=== PATIENT | male | born 1985 | race Hispanic/Latino ===

== ENCOUNTER 2019-03-12 20:48 | Emergency (ER) | payer OTHER ==
[~2019-03-12] VITALS: Ht 170.2 cm; Wt 74.8 kg
--- OUTSIDE RECORDS SUMMARY | 2019-03-12 20:51 | XMS REPORT ---
Author Author [facility] Address Unknown Phone Unavailable Care Team Providers Care Director Of Agronomy Name Role Phone OPAL PATRICK Unavailable Unavailable Problems This patient has no known problems. Allergies, Adverse Reactions, Alerts This patient has no known allergies or adverse reactions. Medications This patient has no known medications. Encounters Start Date/Time End Date/Time Encounter Type Admission Type Attending Clinicians Care Facility Care Department Encounter ID 2016-08-02 11:13:00 2016-09-04 23:59:00 Outpatient OPAL RO[facility] [place] [facility] PT [place] [id number]
--- OUTSIDE RECORDS SUMMARY | 2019-03-12 20:51 | XMS REPORT | Clinical Summary ---
Author Author [facility] Address Unknown Phone Unavailable Care Team Providers Care Professor Of Apologetics Name Role Phone Annette Cosby PCP Unavailable Allergies No Known Allergies Medications End Date Status Medication Sig Dispensed Refills Start Date Active acetaminophen (TYLENOL) Take 650 mg 0 325 MG tablet by mouth. Active clonazePAM (KLONOPIN) 0.5 Take 0.5 mg 0 MG tablet by mouth. 6 Active FLUoxetine (PROZAC) 40 MG Take 40 mg by 0 capsule mouth. 6 Active meloxicam (MOBIC) 15 MG Take 15 mg by 0 tablet mouth. 6 Active methocarbamol (ROBAXIN) Take 500 mg 0 500 MG tablet by mouth. 6 Active cyclobenzaprine 0 (FLEXERIL) 10 MG tablet 6 Active Problems Not on file Social History Date Tobacco Use Types Packs/Day Years Used Never Smoker Alcohol Use Drinks/Week oz/Week Comments No Sex Assigned at Date Recorded Not on file Industry Job Start Date Occupation Not on file Not on file Not on file Travel End Travel History Travel Start No recent travel history available. Last Filed Vital Signs Not on file Plan of Treatment Not on file Results Not on fileafter 03/11/2018 Insurance Payer Benefit Subscriber ID Type Phone Address Plan / Group AETNA - MGD CARE AETNA HMO xxxxxxxxxx HMO/POS POS QPOS
--- OUTSIDE RECORDS SUMMARY | 2019-03-12 20:51 | XMS REPORT | Continuity of Care Document ---
Author Author [facility] Interface Address Unknown Phone Unavailable Problems Problem Status Onset Date Classification Date Reported Comments Source Body mass index 25-29 - overweight 01/18/2018 Diagnosis 01/18/2018 [facility] Body Mass Index 25-29 - Overweight 01/18/2018 Problem 01/18/2018 [facility] Backache 01/18/2018 Problem 01/18/2018 [facility] Headache 01/18/2018 Problem 01/18/2018 [facility] Medications Medication Details Route Status Patient Instructions Ordering Provider Order Date Source Cyclobenzaprine hydrochloride 10 MG Oral Tablet cyclobenzaprine 10 mg tablet Take 1 tablet 3 times a day by oral route as needed for 7 days. Active [facility] Allergies, Adverse Reactions, Alerts Substance Category Reaction Severity Reaction type Status Date Reported Comments Source Immunizations Immunization Date Given Site Status Last Updated Comments Source influenza, unspecified formulation 08/05/2017 completed [facility] Tdap 10/05/2015 completed [facility] Results Order Name Results Value Reference Range Date Interpretation Comments Source Vital Signs Vital Sign Value Date Comments Source Diastolic (mm Hg) 75 01/18/2018 [facility] Height 68 01/18/2018 [facility] Systolic (mm Hg) 118 01/18/2018 [facility] Weight 180 01/18/2018 [facility] Encounters Location Location Details Encounter Type Encounter Number Reason For Visit Attending Provider ADM Date DC Date Status Source [place] - [facility] - [id number]_HeflyxdrLindsey Hughes, HEALTH COMMUNICATIONS SPECIALIST-C: [address] [place] [address], Ph. [id number] Elizabeth Hughes 01/18/2018 [facility] Procedures Procedure Code Date Perfomer Comments Source
--- OUTSIDE RECORDS SUMMARY | 2019-03-12 20:51 | XMS REPORT | Encounter Summary ---
Author Organization Unknown Address [address] [place] [address] Phone [phone] Care Team Providers Care Braider Operator Name Role Phone Annette Cosby 3 [phone] Reason for Visit Medical Complaint Instructions 1. Headache headache: care instructions 2. Backache back pain: care instructions cyclobenzaprine 10 mg tablet 3. Body mass index 25-29 - overweight Discussion Note Pt is in NAD; Verbalizes understanding of all instructions with no questions at this time. Plan of Care Patient Instructions Rest and alternate with ice and heat,Recommend take naprosyn and cyclobenzaprine as directed. Do no operate any machinery or drive while taking these medications. Recommend avoid extreneous exercise, avoid heavy lifting. Activity as tolerated. If worsening of symptoms follow up with PCP or back specialist. In case of emergency call 911 or go to nearest ER. Recommend follow a low sodium/fat/carb diet and exercise 30-45 mins/d 3-4 days a week once symptoms resolve. Reminders Provider Appointments None recorded. Lab None recorded. Referral None recorded. Procedures None recorded. Surgeries None recorded. Imaging None recorded. Medications Name Start Date cyclobenzaprine 10 mg tablet Take 1 tablet 3 times a day by oral route as needed for 7 days. Medications Administered None recorded. Vitals Height Weight BMI Blood Pressure 5 ft 8 in 180 lbs 27.4 kg/m2 118/75 mm[Hg] Lab Results None recorded. Allergies Code Code System Name Reaction Severity Status Onset NKDA Problems Name Status Onset Date Source Body Mass Index 25-29 - Overweight Active 01/18/2018 Backache Active 01/18/2018 Headache Active 01/18/2018 Procedures None recorded. Vaccine List Vaccine Type influenza, unspecified formulation 08/05/2017 Tdap 10/05/2015 Social History Smoking Status Never Smoker Past Encounters 01/18/2018 Headache; Backache; Body Mass Index 25-29 - Overweight MICHELLE Ag-C: [address] [place] [address], Ph. History of Present Illness Headache Reported By: Patient HPI: Location: temporal. Quality: not the worst headache ever, similar to previous headaches. Severity: pain level 3/10. Duration: intermittent. Onset/Timing: better, gradual. Context: not related to trauma, stress at work. Modifying factors: OTC medication, sleep, rest. Associated Symptoms: no fever/chills, no muscle aches, no vomiting, no sensitivity to light, tearing/watery eyes, no confusion, no slurred speech, no preceeding aura, no double vision, normal feeling/sensation, no motor paralysis, no dizziness, no sleep disturbances, no nosebleeds, no hoarseness, no sore throat, no hearing loss, headache; upper back pain Musculoskeletal Complaint Reported By: Patient HPI: Location: Location:. Quality: sharp, deep, intermittent. Severity: moderate (5-7), same, pain level 6-7/10. Duration: intermittent. Onset/Timing: acute, gradual. Context: atraumatic, prior back problems; Pt reports being under a lot of stress lately. Alleviating factors: NSAIDS. Aggravating factors: twisting, movement/positioning, bending over. Associated Symptoms: no fever/chills, no warmth, no redness, no swelling, no drainage, no ecchymosis, no weakness, no tingling, no numbness, no radiation, no catching/locking, no popping/clicking, no buckling, no grinding, no instability, no weight loss, no change in bowel/bladder habits, no muscle aches, headache; upper back pain Review of Systems Basic Reported By: Patient Constitutional: Constitutional: no fever Eyes: Eyes: no eye complaints Obph-Hfte-Oteeb-Throat: Ears: no ear complaints. Nose: no nose/sinus problems. Mouth/Throat: no sore throat, no bleeding gums, no mouth complaints, no teeth problems Cardiovascular: Cardiovascular: no chest pain, no shortness of breath, no known heart murmur Respiratory: Respiratory: no cough, no wheezing, no shortness of breath Gastrointestinal: Gastrointestinal: no abdominal pain, no vomiting / diarrhea Genitourinary: Genitourinary: no urinary complaints, no discharge Musculoskeletal: Musculoskeletal: no muscle aches, no muscle weakness, no arthralgias/joint pain, back pain Skin: Skin: no abnormal / changing mole, no jaundice, no rashes Neurologic: Neurologic: no loss of consciousness, no weakness, no numbness, no seizures, no dizziness, no headaches, headache Physical Exam Adult Basic, Adult Male Complete, Expanded Musculoskeletal Exam 1 Reported By: Patient Constitutional: General Appearance: healthy-appearing, well-nourished, well-developed, overweight. Level of Distress: NAD. Ambulation: ambulating normally Psychiatric: Mental Status: active and alert. Orientation: to time, to place, to person Eyes: Lids and Conjunctivae: non-injected, no discharge, no pallor. Pupils: PERRLA. Corneas: grossly intact. EOM: EOMI. Lens: clear. Vision: peripheral vision grossly intact Efn-Vbqs-Zkkvz-Throat: Nose: no lesions on external nose, nares patent, no septal deviation, nasal passages clear, no sinus tenderness, no nasal discharge Neck: Neck: supple, FROM. Lymph Nodes: no cervical LAD Lungs: Respiratory effort: no dyspnea, no tachypnea, no use of accessory muscles, no intercostal retractions. Auscultation: breath sounds normal, good air movement Cardiovascular: Heart Auscultation: RRR, no murmurs. Pulses including femoral / pedal: normal throughout Musculoskeletal:: Motor Strength and Tone: normal motor strength, normal tone, normal. Joints, Bones, and Muscles: normal movement of all extremities, no bony abnormalities, no contractures, no malalignment, no tenderness. Extremities: no cyanosis, no edema, no varicosities, no palpable cord. Cervical Spine Motion: normal, flexion normal, extension normal, lateral flexion right normal, lateral flexion left normal, rotation right normal, rotation left normal. Shoulder Motion Right: normal, forward elevation normal, abduction normal, adduction normal, external rotation normal, internal rotation normal. Shoulder Motion Left: normal, forward elevation normal, abduction normal, adduction normal, external rotation normal, internal rotation normal Neurologic: Gait and Station: normal gait, normal station, finger-nose normal, heel-knee normal, romberg's sign absent. Cranial Nerves: grossly intact. Sensation: grossly intact. Reflexes: DTRs 2+ bilaterally throughout Back: Thoracolumbar Appearance: normal curvature
[2019-03-12] MEDS ORDERED: LORAZEPAM INJ 2 MG/ML VIAL IM ONE (21:15)
[2019-03-12] MEDS ORDERED: HYDROCODONE/APAP 5MG-325MG TAB PO ONE (21:15)
--- NOTE | 2019-03-12 21:47 | Diagnostic Imaging Report ---
Lumbar Spine Radiographs: 3 views HISTORY: Pain COMPARISON: None available. DISCUSSION: Some of the osseous structures are partially obscured by stool and bowel gas. There are five non-rib bearing lumbar vertebral bodies. The alignment of the spine is within normal limits. No displaced fracture or compression deformity is identified. Minimal T12 and L1 superior endplate compression deformity of indeterminate age. IMPRESSION: Minimal T12 and L1 vertebral body superior endplate compression deformities of indeterminate age. Otherwise, unremarkable Signed by: Dr. Dylan Blackman MD on 03/12/2019 9:44 PM
[2019-03-12 22:29] VITALS: BP 134/90
== END 2019-03-12 22:33 | disposition home or self-care (01) ==
LOC: ER 20:48
DX: M54.5 Low back pain (principal); S33.5XXA Sprain of ligaments of lumbar spine, initial encounter; V23.4XXA Motorcycle driver injured in collision with car, pick-up truck or van in traffic accident, initial encounter; Y92.488 Other paved roadways as the place of occurrence of the external cause
CPT/HCPCS: 72100; 99283; J2060

== ENCOUNTER 2020-02-20 06:57 | Emergency (ER) | payer OTHER ==
[~2020-02-20] VITALS: Ht 170.2 cm; Wt 74.8 kg
--- OUTSIDE RECORDS SUMMARY | 2020-02-20 07:00 | XMS REPORT | Clinical Summary ---
Author Author [facility] Address Unknown Phone Unavailable Care Team Providers Care Cake Tester Name Role Phone Annette Cosby PCP Unavailable Allergies No Known Allergies Medications End Date Status Medication Sig Dispensed Refills Start Date Active acetaminophen (TYLENOL) Take 650 mg 0 325 MG tablet by mouth. Active clonazePAM (KLONOPIN) 0.5 Take 0.5 mg 0 04/05 MG tablet by mouth. 6 Active FLUoxetine (PROZAC) 40 MG Take 40 mg by 0 04/05 capsule mouth. 6 Active meloxicam (MOBIC) 15 [...] Not on file Results Not on fileafter 02/19/2019 Insurance Payer Benefit Subscriber ID Type Phone Address Plan / Group AETNA - MGD CARE AETNA HMO xxxxxxxxxx HMO/POS POS QPOS
--- OUTSIDE RECORDS SUMMARY | 2020-02-20 07:00 | XMS REPORT ---
Author Author [facility] t Organization [facility] Address [address] [place] [address] Phone Unavailable Care Team Providers Care Aircraft Magneto Mechanic Name Role Phone NONSTAFF PCP Unavailable SAMIA KNIGHT Attphys Unavailable OPAL PATRICK Attphys Unavailable OPAL PATRICK Admphys Unavailable Payers Payer Name Policy Type Policy Number Effective Date Expiration Date Melina Courtney o [id number] 2016 00:00:00 [facility] Problems This patient has no known problems. Allergies, Adverse Reactions, Alerts This patient has no known allergies or adverse reactions. Medications This patient has no known medications. Procedures This patient has no known procedures. Encounters Start Date/Time End Date/Time Encounter Type Admission Type Attendi [facility] Care Department Encounter ID Source 2019-03-12 20:48:00 2019-03-12 20:48:00 Registered Emergency Room 1 SAMIA KNIGHT [facility] [id number] [facility] 2016-08-02 11:13:00 2016-09-04 23:59:00 Outpatient EDIL RO[facility] [place] [id number] [facility] Results Test Description Test Time Test Comments Results Result Comments Source SP LUMBAR AP LATERAL 2-3VWS 2019-03-12 21:41:00 [facility] [address] [place], [place] [address] Patient Name: CORDELL PALUMBO MR #: [id number] : 1985 Age/Sex: 33/M Req #: [id number] Adm Physician: Ordered by: SAMIA KNIGHT DO Report #: [id number] Location: ER Room/Bed: Procedure: [id number] DX/SP LUMBAR AP LATERAL 2-3VWS Exam Date: 03/12/19 Exam Time: 2100 REPORT STATUS: Signed Lumbar Spine Radiographs: 3 views HISTORY: Pain COMPARISON: None available. DISCUSSION: Some of the osseous structures are partially obscured by stool and bowel gas. There are five non-rib bearing lumbar vertebral bodies. The alignment of the spine is within normal limits. No displaced fracture or compression deformity is identified. Minimal T12 and L1 superior endplate compression deformity of indeterminate age. IMPRESSION: Minimal T12 and L1 vertebral body superior endplate compression deformities of indeterminate age. Otherwise, unremarkable Signed by: Dr. Dylan Andrade MD on 03/12/2019 9:44 PM Dictated By: DYLAN ANDRADE MD 43 Transcribed By: WONG on 03/12/192143 COPY TO: SAMIA KNIGHT DO
[2020-02-20] MEDS ORDERED: ONDANSETRON HCL INJ 2MG/ML 2ML 2 MG/ML VIAL IV STA (07:01)
[2020-02-20] MEDS ORDERED: SODIUM CHLORIDE 0.9% 1000ML 1,000 ML IV STA ×2 (07:01→07:05)
[2020-02-20] MEDS ORDERED: KETOROLAC TROMETHAMINE 30 MG/ML VIAL IV STA ×2 (07:01→09:43)
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
[2020-02-20] MEDS ORDERED: SODIUM CHLORIDE 0.9% 1000ML 1,000 ML ONE (07:16)
[2020-02-20 07:41] LABS: BASOPHILS % 0.5 % (0.0-1.0); EOSINOPHILS # (AUTO) 0.3 (0.0-0.4); EOSINOPHILS % 3.2 % (0.0-6.0); HEMATOCRIT 44.2 % (38.2-49.6); HEMOGLOBIN 14.3 g/dL (14.0-18.0); LYMPHOCYTES % 47.7 % (18.0-39.1); MEAN CORPUSCULAR HEMOGLOBIN 28.9 pg (28-32); MEAN CORPUSCULAR HGB CONC 32.4 g/dL (31-35); MEAN CORPUSCULAR VOLUME 89.3 fL (81-99); MONOCYTES # (AUTO) 0.9 (0.2-0.8); MONOCYTES % 10.2 % (4.4-11.3); NEUTROPHILS # (AUTO) 3.2 (2.1-6.9); NEUTROPHILS % 38.2 % (38.7-80.0); PLATELET COUNT 356 x10e3/uL (140-360); RED BLOOD COUNT 4.95 x10e6/uL (4.3-5.7); RED CELL DISTRIBUTION WIDTH 12.1 % (11.7-14.4)
[2020-02-20 07:59] LABS: BILIRUBIN,URINE SMALL (NEGATIVE); CLARITY,URINE SL CLOUDY (CLEAR); COLOR,URINE YELLOW (YELLOW); KETONES,URINE NEGATIVE (NEGATIVE); LEUKOCYTE ESTERASE ,URINE NEGATIVE (NEGATIVE); NITRITE,URINE NEGATIVE (NEGATIVE); PROTEIN,URINE DIPSTICK 2+ (NEGATIVE); URINE UROBILINOGEN 0.2 mg/dL (0.2 - 1)
[2020-02-20 08:00] LABS: AMPHETAMINES SCREEN,URINE POSITIVE (NEGATIVE); BENZODIAZEPINES SCREEN,URINE NEGATIVE (NEGATIVE); PHENCYCLIDINE SCREEN,URINE NEGATIVE (NEGATIVE)
[2020-02-20] MEDS ORDERED: MORPHINE SULFATE INJ 4 MG/ML INJ 1ML IV STA (08:01)
[2020-02-20 08:10] LABS: RBC,URINE >50 /HPF (0-5); WBC,URINE (MAN) 0-5 /HPF (0-5)
[2020-02-20 08:11] LABS: EPITHELIAL CELLS,URINE RARE /LPF; MUCUS,URINE MANY (RARE)
[2020-02-20 08:13] LABS: BACTERIA,URINE MODERATE /HPF
[2020-02-20] MEDS ORDERED: MORPHINE SULFATE 2 MG/ML SYR 1ML ONE (08:18)
[2020-02-20 08:20] LABS: ALANINE AMINOTRANSFERASE 18 IU/L (0-55); ALBUMIN 3.9 g/dL (3.5-5.0); ALBUMIN/GLOBULIN RATIO 1.3 (0.8-2.0); ALKALINE PHOSPHATASE 69 IU/L (40-150); ANION GAP 13.7 mmol/L (8-16); BLOOD UREA NITROGEN 13 mg/dL (7-26); BUN/CREATININE RATIO 13 (6-25); CALCIUM 8.9 mg/dL (8.4-10.2); CARBON DIOXIDE 25 mmol/L (22-29); CHLORIDE 106 mmol/L (98-107); CREATININE, SERUM 1.02 mg/dL (0.72-1.25); EST GLOMERULAR FILTRATION RATE > 60 ML/MIN (60-); GLUCOSE 101 mg/dL (74-118); LIPASE 22 U/L (8-78); POTASSIUM 3.7 mmol/L (3.5-5.1); SODIUM 141 mmol/L (136-145)
--- NOTE | 2020-02-20 09:03 | Diagnostic Imaging Report ---
Chest, 2 views, 02/20/2020. History: Shortness of breath. Comparison: None available. Findings: The cardiomediastinal silhouette and pulmonary vasculature are within normal limits. The lungs are clear without evidence of consolidation or pleural effusion. There are no acute osseous or soft tissue abnormalities. Impression: No acute cardiopulmonary abnormality. Signed by: Jacob Romeo on 02/20/2020 9:00 AM
--- NOTE | 2020-02-20 09:07 | Diagnostic Imaging Report ---
CT of the abdomen and pelvis, without contrast, 02/20/2020. History: Left flank pain. Comparison: None available. Technique: Multidetector CT scanning of the abdomen and pelvis was performed from the level of the lung bases to the inferior pubic rami without intravenous or oral contrast. Coronal and sagittal multiplanar reformations were obtained. RADIATION DOSE: Total DLP: 309 mGy*cm Dose modulation, iterative reconstruction, and/or weight based adjustment of the mA/kV was utilized to reduce the radiation dose to as low as reasonably achievable. Discussion: Examination is limited without contrast. Lung bases: No visualized abnormalities. Abdomen: There is mild left hydronephrosis and periureteric down to the pelvis where a 4 mm stone is notified in the distal left ureter. Punctate calcifications are also noted in the upper pole of the both kidneys. There is no hydronephrosis on the right. The liver, gallbladder, biliary tree, spleen, pancreas, and adrenal glands are unremarkable. The abdominal aorta is within normal limits. There is no bowel dilatation. The appendix is visualized and is normal. There is no evidence of adenopathy or free fluid. Pelvis: The bladder is empty. The prostate and seminal vesicles are unremarkable. Bilateral calcified phleboliths are present. There is no evidence of free fluid or adenopathy. Bones and soft tissues: No abnormality. IMPRESSION: 4 mm distal left ureteral stone causing mild left hydronephrosis. Otherwise unremarkable noncontrast exam. Signed by: Jacob Romeo on 02/20/2020 9:04 AM
[2020-02-20 10:27] VITALS: BP 119/84
== END 2020-02-20 10:29 | disposition home or self-care (01) ==
LOC: ER 06:57
DX: R10.32 Left lower quadrant pain (principal); M54.5 Low back pain; N20.0 Calculus of kidney; N39.0 Urinary tract infection, site not specified; I95.9 Hypotension, unspecified
CPT/HCPCS: 36415; 71046; 74176; 80053; 80307; 81001; 83690; 85025; 87635; 93005; 99284; J1885; J2270; J2405; J7030

== ENCOUNTER 2021-12-31 22:53 | Emergency (ER) | payer OTHER ==
[~2021-12-31] VITALS: Ht 170.2 cm; Wt 74.8 kg
[2021-12-31] MEDS ORDERED: CEPHALEXIN500 MG PO (23:13)
[2021-12-31] MEDS ORDERED: TETANUS/DIPHTHERIA TOX ADULT 0.5 ML SYR IM ONE (23:15)
[2022-01-01] MEDS ORDERED: ACETAMINOPHEN 325 MG TAB PO STA (00:13)
[2022-01-01] MEDS ORDERED: BACITRACIN ZINC 0.9GM TP ONE (00:15)
[2022-01-01] MEDS ORDERED: ACETAMINOPHEN-1 EAC4 PO (00:16)
== END 2022-01-01 00:49 | disposition home or self-care (01) ==
LOC: ER 23:06
DX: S01.511A Laceration without foreign body of lip, initial encounter (principal); S62.001A Unspecified fracture of navicular [scaphoid] bone of right wrist, initial encounter for closed fracture; V19.88XA Pedal cyclist (driver) (passenger) injured in other specified transport accidents, initial encounter; Y93.55 Activity, bike riding; Y92.488 Other paved roadways as the place of occurrence of the external cause
CPT/HCPCS: 90471; 90714; 99284

== ENCOUNTER 2024-06-28 14:11 | Emergency (ER) | payer OTHER ==
[~2024-06-28] VITALS: Ht 170.2 cm; Wt 74.8 kg
[~2024-06-28 14:11] MED LIST: ACETAMINOPHEN-1 EAC4 PO; CEPHALEXIN500 MG PO
[2024-06-28 14:36] VITALS: PULSE 76; RESP 18; TEMP 98.6; O2SAT 99
== END 2024-06-28 15:25 | disposition home or self-care (01) ==
LOC: ER 14:24
DX: F41.9 Anxiety disorder, unspecified (principal); F11.10 Opioid abuse, uncomplicated; F31.9 Bipolar disorder, unspecified
CPT/HCPCS: 99282